=== PATIENT | male | born 1970 | race Caucasian/White ===

== ENCOUNTER 2020-06-12 12:35 | Outpatient (CLI) | payer MEDICARE, MEDICAID ==
[~2020-06-12 12:35] MED LIST: ALBU8.5H4 INH; BENZ1TAB7 PO; BRIM5DRO RIGHTEYE; HYDR-3686 PO; HYDR-4383 PO; LORA10TA7 PO; LORA1TAB PO; OMEP20TA5 PO; QUET-1 PO; TADA5TAB2 PO; TRAZ150T78 PO
== END 2020-06-12 23:59 | disposition home or self-care (01) ==
LOC: RT 12:35
PROVIDERS: ATTEND Physician Assistant
DX: J45.998 Other asthma (principal)
CPT/HCPCS: 94010

== ENCOUNTER 2022-07-17 08:54 | Inpatient (IN) | payer MEDICARE, MEDICAID ==
[~2022-07-17] VITALS: Ht 172.7 cm; Wt 70.0 kg
[~2022-07-17 08:54] MED LIST changes: +OMEP20TA43 PO; -OMEP20TA5 PO
[2022-07-17] MEDS ORDERED: LORazepam 2 mg/ml vial IM ONE (10:15)
[2022-07-17] MEDS ORDERED: haloperidol lactate 5mg/ml inj IM ONE (10:15)
[2022-07-17] MEDS ORDERED: diphenhydrAMINE 50 mg/ml inj IM ONE (10:15)
[2022-07-17] MEDS ORDERED: PALI234D IM ×2 (10:22)
[2022-07-17] MEDS ORDERED: QUET-1 PO (10:22)
[2022-07-17] MEDS ORDERED: DIPH-1055 PO (10:22)
[2022-07-17] MEDS ORDERED: FLUT12AE4 IH (10:39)
--- NOTE | 2022-07-17 12:06 | NUR ---
tech inventoried pt belongings and placed them into locker 24, pt phone being taken home by daughter. no valuables plced in ER registration safe.
--- NOTE | 2022-07-17 12:17 | NUR ---
SITTING UP IN BED EATING LUNCH, PT REPORTS "FEELING BETTER" AFTER MEDICATION.
[2022-07-17 12:25] LABS: BASOPHILS # (AUTO) 0.1 X10'3 (0-0.2); BASOPHILS % (AUTO) 0.5 % (0-1); EOSINOPHILS # (AUTO) 0.1 X10'3 (0-0.9); EOSINOPHILS % (AUTO) 1.2 % (0-6); HEMATOCRIT 44.3 % (42.0-52.0); HEMOGLOBIN 15.2 g/dl (14.0-17.9); LYMPHOCYTES # (AUTO) 2.4 X10'3 (1.1-4.8); LYMPHOCYTES % (AUTO) 22.9 % (21-51); MEAN CORPUSCULAR HEMOGLOBIN 29.5 PG (27.0-31.0); MEAN CORPUSCULAR HGB CONC 34.3 g/dL (33.0-36.5); MEAN CORPUSCULAR VOLUME 86.1 FL (78-98); MEAN PLATELET VOLUME 8.5 FL (7.4-10.4); MONOCYTES % (AUTO) 9.5 % (2-12); NEUTROPHILS % (AUTO) 65.9 % (42-75); PLATELET COUNT 235 X10'3 (140-440); RED BLOOD COUNT 5.15 X10'6 (4.70-6.10); RED CELL DISTRIBUTION WIDTH 13.3 % (11.5-14.5); WHITE BLOOD COUNT 10.6 X10'3 (4.5-11.0)
[2022-07-17 12:54] LABS: ALANINE AMINOTRANSFERASE 27 U/L (12-78); ALBUMIN 4.2 G/DL (3.4-5.0); ALBUMIN/GLOBULIN RATIO 1.4 (1.1-1.5); ALKALINE PHOSPHATASE 74 IU/L (46-116); ANION GAP 6 (8-16); ASPARTATE AMINO TRANSFERASE 23 U/L (10-37); BILIRUBIN,TOTAL 0.6 MG/DL (0.1-1.0); BLOOD UREA NITROGEN 8 MG/DL (7-18); BUN/CREATININE RATIO 6.7 (5.4-32.0); CALCIUM 9.5 MG/DL (8.5-10.1); CHLORIDE 100 MMOL/L (99-107); CREATININE 1.19 MG/DL (0.60-1.10); GLUCOSE 77 MG/DL (70-104); SODIUM 137 MMOL/L (135-145); TOTAL CARBON DIOXIDE 30.9 MMOL/L (24-32); TOTAL PROTEIN 7.1 G/DL (6.4-8.2); eGFR 64 ML/MIN
[2022-07-17 12:56] LABS: POTASSIUM 3.8 MMOL/L (3.5-5.1)
[2022-07-17 12:58] LABS: ETHANOL < 0.010 GM/DL (0.0-0.010)
[2022-07-17 13:43] LABS: CLARITY,URINE CLEAR (Clear); COLOR,URINE YELLOW (Yellow); GLUCOSE, URINE NEGATIVE (Neg); KETONES,URINE NEGATIVE (Neg); LEUKOCYTE ESTERASE ,URINE NEGATIVE (Neg); NITRITES, URINE NEGATIVE (Neg); OCCULT BLOOD,URINE NEGATIVE (Neg); PH,URINE 6.5 (4.8-8.0); PROTEIN,URINE NEGATIVE (Neg); UA COLLECTION TYPE NON-SPECIFIED; UROBILINOGEN,URINE 0.2 E.U/dL (0.2-1.0)
[2022-07-17] MEDS: QUEtiapine 25mg tablet PO SCH (13:57)
[2022-07-17 14:00] LABS: URINE AMPHETAMINE SCREEN POSITIVE (Neg); URINE BARBITUATE SCREEN NEGATIVE (Neg); URINE BENZODIAZEPINES SCREEN NEGATIVE (Neg); URINE CANNABINOID SCREEN NEGATIVE (Neg); URINE COCAINE SCREEN NEGATIVE (Neg); URINE METHADONE SCREEN NEGATIVE (Neg); URINE OPIATE SCREEN NEGATIVE (Neg); URINE PHENCYCLIDINE SCREEN NEGATIVE (Neg)
--- NOTE | 2022-07-17 14:04 | NUR ---
barbara sent pt packet to [facility]
[2022-07-17] MEDS ORDERED: LORazepam 1 MG tablet PO ONE (15:10)
--- NOTE | 2022-07-17 16:11 | NUR ---
PATIENT SLEEPING. NO CHANGE IN CONDITION
[2022-07-17] MEDS ORDERED: OMEP20TA23 PO (17:51)
[2022-07-17] MEDS: calcium carbonate 500mg chew tablet PO SCH (22:31)
[2022-07-17] MEDS ORDERED: QUET25TA36 PO (22:45)
--- NOTE | 2022-07-18 00:24 | NUR ---
PT. AWAKE WANTING TO MAKE A PHONE CALL TO HIS FAMILY, STATES HE IS "FREAKING OUT", SEEING SPIRITS HE POINTS OUT AND SAYS THERE IS ONE NOW. ALSO WHEN HE WENT TO THE BATHROOM THAT HIS "SPIRIT IS GOINT DOWN THE PIPES WHEN HE FLUSHED THE TOILET". sPOKE WITH DR. CLEMENS, MEDS ORDERED.
[2022-07-18] MEDS: olanzapine 10mg tablet PO SCH (00:34)
--- NOTE | 2022-07-18 01:35 | NUR ---
PATIENT SLEEPING QUIETLY ON LEFT SIDE WITHOUT APPARENT DISTRESS. NO FURTHER C/O OF ANXIETY AFTER MEDS GIVEN ORDERED. WILL CONTINUE TO MONITOR
--- NOTE | 2022-07-18 02:46 | NUR ---
No change in pt. condition, sleeping quietly. Will continue to monitor.
--- NOTE | 2022-07-18 03:47 | NUR ---
Pt. woke up crying and tearful. When asked what is wrong, he is slow to respond and states he can't fix what is wrong. Continues to want to call his family. Requested juice, given and continues to cry.
--- NOTE | 2022-07-18 04:41 | NUR ---
Pt. back to sleep without distress. Will continue to monitor.
--- NOTE | 2022-07-18 05:49 | NUR ---
Continues to sleep without distress. Will continue to monitor.
[2022-07-18] MEDS ORDERED: LORazepam 1 MG tablet PO ONE ×2 (06:40→12:20)
[2022-07-18] MEDS: QUEtiapine 25mg tablet PO SCH (07:02)
--- NOTE | 2022-07-18 07:04 | NUR ---
Patient is sitting quietly on his bed.
[2022-07-18] MEDS ORDERED: nicotine 21mg patch - 24 hr TD ONE (08:00)
--- NOTE | 2022-07-18 08:04 | NUR ---
Patient is sleeping on the left side. Will continue to monitor.
[2022-07-18] MEDS: calcium carbonate 500mg chew tablet PO SCH ×3 (08:06→20:13)
--- NOTE | 2022-07-18 09:03 | NUR ---
Patient is setting at bedside eating breakfast.
--- NOTE | 2022-07-18 10:06 | NUR ---
Patient is sitting quietly in bed.
[2022-07-18] MEDS ORDERED: OLANZapine 2.5MG tablet PO ONE (10:35)
--- NOTE | 2022-07-18 11:02 | NUR ---
Patient interacting with staff appropriately in room
--- NOTE | 2022-07-18 11:25 | NUR ---
CIPRIANO Lucio from [facility] at bedside. PT to be transported to the floor
[2022-07-18 11:51] VITALS: BP 120/83
[2022-07-18] MEDS ORDERED: magnesium hydroxide 30ml (MOM) UD suspension PO PRN (11:55)
[2022-07-18] MEDS ORDERED: mag hydrox/Alum hydrox/simeth 30ml oral suspension PO PRN (11:55)
[2022-07-18] MEDS ORDERED: loperamide 2mg capsule PO PRN (11:55)
[2022-07-18] MEDS ORDERED: acetaminophen 325mg tablet PO PRN (11:55)
--- NOTE | 2022-07-18 12:37 | NUR ---
Admit note: [facility] on a 5150 for gravely disabled. Pt has decompensated experiencing command auditory hallucinations, paranoia, wandering. He is unable to develop viable plan to meet his basic needs. Pt has history of schizophrenia, bipolar, pancreatitis.
[2022-07-18] MEDS ORDERED: pantoprazole 40mg Tablet.DR PO ONE (13:15)
[2022-07-18] MEDS ORDERED: paliperidone palmitate inj 234 MG/1.5 ML SYRINGE IM PRN (13:20)
[2022-07-18] MEDS ORDERED: diphenhydrAMINE 25mg capsule PO PRN (13:20)
[2022-07-18] MEDS ORDERED: paliperidone palmitate inj 234 MG/1.5 ML SYRINGE IM SCH (13:20)
[2022-07-18] MEDS ORDERED: LORazepam 1 MG tablet PO PRN ×2 (13:20→13:25)
[2022-07-18] MEDS ORDERED: albuterol 2.5 MG/3 ML nebule NEB PRN (13:40)
[2022-07-18] MEDS: loratadine 10mg tablet PO SCH (14:46)
[2022-07-18] MEDS: albuterol 2.5 MG/3 ML nebule NEB SCH ×2 (15:00→19:53)
[2022-07-18] MEDS ORDERED: cloNIDine 0.1 mg tablet PO ONE (15:40)
[2022-07-18 19:00] VITALS: BP 140/86
[2022-07-18] MEDS: budesonide 0.5mg/2ml UD nebule IH SCH (19:53)
[2022-07-18] MEDS: traZODone 50mg tablet PO SCH (20:13)
[2022-07-18] MEDS: benztropine 1mg tablet PO SCH (20:13)
[2022-07-18] MEDS: LORazepam 1 MG tablet PO SCH (20:13)
[2022-07-18] MEDS ORDERED: CLOZAPINE 25 MG oral disintegrating tablet PO ONE (20:40)
--- NOTE | 2022-07-18 20:50 | NUR ---
CLOZAPINE REMS ID: Client was registered at [email or web address] on 07/18/22. ID#: [id number] Provider: Myron Ramirez MD
[2022-07-18] MEDS ORDERED: quetiapine 100mg tablet PO SCH (21:00)
[2022-07-19] MEDS: olanzapine 10mg tablet PO SCH (00:17)
[2022-07-19] MEDS: albuterol 2.5 MG/3 ML nebule NEB SCH ×4 (03:00→20:48)
--- NOTE | 2022-07-19 04:09 | NUR ---
Nursing Progress Note: Problem: Pt admitted to [facility] on a 5150 for gravely disabled. Pt has decompensated experiencing command auditory hallucinations, paranoia, wandering. He is unable to develop viable plan to meet his basic needs. Pt has history of schizophrenia, bipolar, pancreatitis. Interventions: Maintained a safe and supportive environment, ensured contract for safety, provided clear and simple instructions, attempted to orient to reality, monitored behavior and provided intervention as needed, provided active listening and positive encouragement, encouraged independent performance of ADLs, and maintained Q 15min safety checks. Response: Pt pacing on the halls at start of shift. 1:1 assessment at bedside. Pt denies SI, pt states he is having AH/VH. When asked of the content pt states I see my soul in the toilet and going down the pipes. I hear people scream getting rapped. When asked how he is doing pt states I cant slow down, my mind keeps going thats why I pace back and forth. Pt is confused and disorganized. Pt seen sticking his head in cohorts room and staring at them. HS meds administered. Pt had a snack and went to bed. Pt slept through the night. Plan: Pt requires stabilization with medication adjustment, management and monitoring in a safe and therapeutic environment until stable.
[2022-07-19 08:00] VITALS: BP 131/71
[2022-07-19] MEDS: nicotine 21mg patch - 24 hr TD SCH ×2 (08:00→10:41)
[2022-07-19] MEDS: LORazepam 1 MG tablet PO SCH ×3 (08:06→20:05)
[2022-07-19] MEDS: QUEtiapine 25mg tablet PO SCH ×2 (08:06→12:19)
[2022-07-19] MEDS: pantoprazole 40mg Tablet.DR PO SCH (08:06)
[2022-07-19] MEDS: calcium carbonate 500mg chew tablet PO SCH ×3 (08:07→20:06)
[2022-07-19] MEDS: CLOZAPINE 25 MG oral disintegrating tablet PO PRN ×3 (08:07→18:52)
[2022-07-19] MEDS: acetaminophen 325mg tablet PO PRN ×2 (08:07→12:20)
[2022-07-19] MEDS: benztropine 1mg tablet PO SCH ×2 (08:07→20:05)
[2022-07-19] MEDS: loratadine 10mg tablet PO SCH (08:07)
[2022-07-19] MEDS: budesonide 0.5mg/2ml UD nebule IH SCH ×2 (08:45→20:48)
--- NOTE | 2022-07-19 09:04 | NUR ---
Pt. sleeping soundly at this time without SOB.. CHIP held
[2022-07-19] MEDS: NICOTINE POLACRILEX 2 MG LOZENGE BC PRN (10:41)
[2022-07-19 10:53] LABS: CHOL/HDL RATIO 2.9 (0.00-4.99); CHOLESTEROL 136 MG/DL (0-200); HDL CHOLESTEROL 47 MG/DL (35-60); LDL CHOLESTEROL 70 MG/DL (50-100); TRIGLYCERIDES 103 MG/DL (20-135)
--- NOTE | 2022-07-19 14:11 | NUR ---
Pt. again sleeping soundly, CHIP maynard
--- NOTE | 2022-07-19 16:25 | NUR ---
Nursing Progress Note: Problem: Pt admitted to [facility] on a 5150 for gravely disabled. Pt has decompensated experiencing command auditory hallucinations, paranoia, wandering. He is unable to develop viable plan to meet his basic needs. Pt has history of schizophrenia, bipolar, pancreatitis. Interventions: Maintained a safe and supportive environment, ensured contract for safety, provided clear and simple instructions, attempted to orient to reality, monitored behavior and provided intervention as needed, provided active listening and positive encouragement, encouraged independent performance of ADLs, and maintained Q 15min safety checks. Response: Patient was asleep at change of shift and up before breakfast. Patient c/o DUMONT and anxiety. RN gave patient Tylenol and 25 mg Clozaril with morning meds (which includes 1 mg of Ativan, scheduled). An hour later patient was asking for med for anxiety. No more meds to give but within 20 minutes patient was asleep in his bed. Patient was given Tylenol a second time during the day for a DUMONT. Patient reports audio/visual hallucination and spoke about seeing blue balls bouncing behind RN. Patient seen pacing. RN was advised in the late afternoon that patient needed anti-anxiety medication. Once RN finished her task and went to check on patient, patient was sound asleep. Per Dr. Ramirez, he is in the midst of adjusting patient's medications. Plan: Pt requires stabilization with medication adjustment, management and monitoring in a safe and therapeutic environment until stable.
[2022-07-19 20:03] VITALS: BP 139/69
[2022-07-19] MEDS: CLOZAPINE 25 MG oral disintegrating tablet PO SCH (20:05)
[2022-07-19] MEDS: quetiapine 100mg tablet PO SCH (20:06)
[2022-07-19] MEDS: traZODone 50mg tablet PO SCH (20:06)
[2022-07-19] MEDS ORDERED: CLOZAPINE 25 MG oral disintegrating tablet PO SCH (21:00)
[2022-07-20] MEDS: olanzapine 10mg tablet PO SCH (00:25)
--- NOTE | 2022-07-20 01:37 | NUR ---
Nursing Progress Note: Problem: Pt admitted to [facility] on a 5150 for gravely disabled. Pt has decompensated experiencing command auditory hallucinations, paranoia, wandering. He is unable to develop viable plan to meet his basic needs. Pt has history of schizophrenia, bipolar, pancreatitis. Interventions: Maintained a safe and supportive environment, ensured contract for safety, provided clear and simple instructions, attempted to orient to reality, monitored behavior and provided intervention as needed, provided active listening and positive encouragement, encouraged independent performance of ADLs, and maintained Q 15min safety checks. Response: Pt up in [place] at start of shift pacing c/o anxiety and flashbacks. Pt given PRN Clozapine only after about 5 minutes pt returned anxious That it did not work. Wanted MD called to get something stronger. Encouraged pt to wait for 30 minutes to see if it would work. He agreed and it was effective. After one brief period of yelling out he was able to lay quietly in bed till snack and his HS meds due. Pt Denied SI has some delusional thinking related to electronic surveillance and people spying on him. He did make a female pt uncomfortable by staring at her through her open door of her room. Pt took all meds and was able to go to sleep. Plan: Pt requires stabilization with medication adjustment, management and monitoring in a safe and therapeutic environment until stable.
[2022-07-20] MEDS: albuterol 2.5 MG/3 ML nebule NEB SCH ×4 (03:00→20:27)
[2022-07-20] MEDS: budesonide 0.5mg/2ml UD nebule IH SCH ×2 (07:44→20:27)
--- NOTE | 2022-07-20 07:45 | NUR ---
pt. refused morning SVN. o resp distress observed. Pt. remains on room air
[2022-07-20 08:00] VITALS: BP 126/67
[2022-07-20] MEDS: calcium carbonate 500mg chew tablet PO SCH (08:00)
[2022-07-20] MEDS: pantoprazole 40mg Tablet.DR PO SCH (08:17)
[2022-07-20] MEDS: benztropine 1mg tablet PO SCH ×2 (08:17→20:37)
[2022-07-20] MEDS: QUEtiapine 25mg tablet PO SCH ×2 (08:17→12:45)
[2022-07-20] MEDS: loratadine 10mg tablet PO SCH (08:18)
[2022-07-20] MEDS: LORazepam 1 MG tablet PO SCH ×3 (08:18→20:37)
[2022-07-20] MEDS: CLOZAPINE 25 MG oral disintegrating tablet PO SCH ×3 (08:18→20:36)
[2022-07-20] MEDS: nicotine 21mg patch - 24 hr TD SCH (08:18)
[2022-07-20] MEDS: CLOZAPINE 25 MG oral disintegrating tablet PO PRN ×2 (11:30→17:45)
[2022-07-20] MEDS ORDERED: calcium carbonate 500mg chew tablet PO PRN (13:00)
--- NOTE | 2022-07-20 17:15 | NUR ---
Nursing Progress Note: Problem: Pt admitted to [facility] on a 5150 for gravely disabled. Pt has decompensated experiencing command auditory hallucinations, paranoia, wandering. He is unable to develop viable plan to meet his basic needs. Pt has history of schizophrenia, bipolar, pancreatitis. Interventions: Maintained a safe and supportive environment, ensured contract for safety, provided clear and simple instructions, attempted to orient to reality, monitored behavior and provided intervention as needed, provided active listening and positive encouragement, encouraged independent performance of ADLs, and maintained Q 15min safety checks. Response: Patient was asleep at change of shift and up before breakfast. Patient complaining of anxiety off and on all day long. Three times throughout the day patient asked for medication. When RN went to patient's room. Patient was already sleeping. Patient also asking for anxiety hours before med is due. Patient needs coping skills. Patient did take several naps during the day. Patient's medication is in the process of being adjusted. So far Clozaril has been the best to decrease patient's anxiety. Plan: Pt requires stabilization with medication adjustment, management and monitoring in a safe and therapeutic environment until stable.
[2022-07-20] MEDS: quetiapine 100mg tablet PO SCH (20:37)
[2022-07-20] MEDS: traZODone 50mg tablet PO SCH (20:37)
[2022-07-20 20:54] VITALS: BP 132/87
[2022-07-20] MEDS ORDERED: CLOZAPINE 25 MG oral disintegrating tablet PO ONE ×2 (21:55→22:00)
--- NOTE | 2022-07-20 23:08 | NUR ---
Nursing Progress Note: Problem: Pt admitted to [facility] on a 5150 for gravely disabled. Pt has decompensated experiencing command auditory hallucinations, paranoia, wandering. He is unable to develop viable plan to meet his basic needs. Pt has history of schizophrenia, bipolar, pancreatitis. Interventions: One to one with the patient to assess severity of psychotic symptoms, self harm risk and the severity of depressive symptoms. scallop raker , Dr. Tomas was made aware that the patient was reporting that he was not able to sleep and orders received. Response: During the initial nursing assessment after change of shift the patient stated that he had no anxiety "right now it's completely normal but that can change in 3 minutes" He denies that is having suicidal thoughts. He reports decreased concentration and focus then added, "I keep having flash backs" but he declined to elaborate. He reported AH "all the time" He also reported VH in his peripheral vision. He became quite tearful and upset just prior to getting his evening medications. He was calmer after his HS medications but then came up to the nursing station and reported difficulty sleeping. Plan: Continue q 15 minute safety checks. Assess for severity of anxiety, depressive symptoms and self harm risk at least q shift and prn. Assess for medication side effects.
[2022-07-21] MEDS: albuterol 2.5 MG/3 ML nebule NEB SCH ×4 (03:00→20:41)
[2022-07-21 08:00] VITALS: BP 119/74
[2022-07-21] MEDS: pantoprazole 40mg Tablet.DR PO SCH (08:11)
[2022-07-21] MEDS: LORazepam 1 MG tablet PO SCH ×3 (08:11→19:54)
[2022-07-21] MEDS: loratadine 10mg tablet PO SCH (08:11)
[2022-07-21] MEDS: CLOZAPINE 25 MG oral disintegrating tablet PO SCH ×2 (08:12→12:44)
[2022-07-21] MEDS: benztropine 1mg tablet PO SCH ×2 (08:12→19:54)
[2022-07-21] MEDS: acetaminophen 325mg tablet PO PRN (08:12)
[2022-07-21] MEDS: nicotine 21mg patch - 24 hr TD SCH (08:15)
[2022-07-21] MEDS: budesonide 0.5mg/2ml UD nebule IH SCH ×2 (09:38→20:00)
--- NOTE | 2022-07-21 09:45 | NUR ---
Pt tolerated 2 minutes of neb tx states he doesnt need it denies sob. up walking around. Addendum: 07/21/22 at 945 by Adrianne Gaston RT Amended: Links added. Addendum: 07/21/22 at 945 by Adrianne Gaston RT Amended: Links added.
[2022-07-21] MEDS: NICOTINE POLACRILEX 2 MG LOZENGE BC PRN (14:36)
--- NOTE | 2022-07-21 14:40 | NUR ---
Nursing Progress Note: Problem: [facility]150 for gravely disabled. Pt has decompensated experiencing command auditory hallucinations, paranoia, wandering. He is unable to develop viable plan to meet his basic needs. Pt has history of schizophrenia, bipolar, pancreatitis. Interventions: 1:1 assessment, establishment of rapport, therapeutic conversation, active listening, medication administration/education/monitoring, ensured contract for safety, provided simple instructions, behavior monitoring and intervention as needed, provided distraction, redirection, positive reinforcement, and Q15 minute safety checks. Response: Pt was up for breakfast and cooperative with medications. When asked about AH, pt replied, "all the time." Pt describes the voices as quick one word or short sentence expletives. Pt denied any CAH today. Pt denied SI/HI. Pt denied any VH this morning though states that he does see things sometimes. Pt described incidents of AH/VH in the community. Pt stated that he was at home looking at a darius jones and he heard, "Kill 'em, they're !" He also spoke of walking out of a grocery store with a bag full of meat, seeing a dog. Pt stated that the dog looked up at the bag and said, "yum." Pt was pleasant and talkative. Pt takes short naps throughout the day. Pt makes phone calls. Pt c/o 7/10 back pain and was given PRN Tylenol 650 mg at 0812 with good effect. Pt requested a nicotine lozenge at 1436. Pt has a CBC/diff ordered for 07/31/22. Plan: Pt requires stabilization with medication adjustment, management and monitoring in a safe and therapeutic environment until stable.
[2022-07-21] MEDS: CLOZAPINE 25 MG oral disintegrating tablet PO PRN (17:09)
[2022-07-21] MEDS: traZODone 50mg tablet PO SCH (19:55)
[2022-07-21 20:07] VITALS: BP 138/95
[2022-07-21] MEDS ORDERED: quetiapine 100mg tablet PO SCH (21:00)
[2022-07-21] MEDS ORDERED: CLOZAPINE 25 MG oral disintegrating tablet PO SCH (21:00)
[2022-07-21] MEDS ORDERED: CLOZAPINE 25 MG oral disintegrating tablet PO ONE ×2 (23:15→23:40)
--- NOTE | 2022-07-22 00:54 | NUR ---
Nursing Progress Note: ra Problem: Pt admitted to [facility] on a 5150 for gravely disabled. Pt has decompensated experiencing command auditory hallucinations, paranoia, wandering. He is unable to develop viable plan to meet his basic needs. Pt has history of schizophrenia, bipolar, pancreatitis. Interventions: 1:1 assessment, establishment of rapport, therapeutic conversation, active listening, medication administration/education/monitoring, ensured contract for safety, provided simple instructions, behavior monitoring and intervention as needed, provided distraction, redirection, positive reinforcement, and Q15 minute safety checks. Response: Pt resting in bed and was calm and cooperative with care. He voices depression and anxiety, denies SI/AH. Pt requested his medications to be on time tonight because when he gets really anxious I need my medications soon. Pt has flat affect, appears depressed. Pt took HS medications, however woke up complaining about difficulty sleeping. Provider notified 25MG clozapine given with good effect. Plan: Pt requires stabilization with medication adjustment, management and monitoring in a safe and therapeutic environment until stable.
[2022-07-22] MEDS: albuterol 2.5 MG/3 ML nebule NEB SCH ×4 (01:59→20:37)
--- NOTE | 2022-07-22 07:29 | NUR ---
Initial; Pt admitted w/ schizophrenia and SI per EMR. Currently on Regular diet w/ mostly 75-100% intake of meals meeting est needs at this time. LBM 07/21. No nutrition intervention implemented at this time, will continue to monitor. Recs: 1. Continue Regular diet as tolerated 2. Bowel care PRN 3. Weekly wts Addendum: 07/22/22 at [address] Amended: Links added.
[2022-07-22 07:48] VITALS: BP 133/73
[2022-07-22] MEDS: LORazepam 1 MG tablet PO SCH ×3 (08:15→19:43)
[2022-07-22] MEDS: loratadine 10mg tablet PO SCH (08:15)
[2022-07-22] MEDS: pantoprazole 40mg Tablet.DR PO SCH (08:15)
[2022-07-22] MEDS: CLOZAPINE 25 MG oral disintegrating tablet PO SCH ×2 (08:15→12:51)
[2022-07-22] MEDS: benztropine 1mg tablet PO SCH ×2 (08:15→19:42)
[2022-07-22] MEDS: nicotine 21mg patch - 24 hr TD SCH (09:04)
[2022-07-22] MEDS: budesonide 0.5mg/2ml UD nebule IH SCH ×2 (09:30→20:00)
--- NOTE | 2022-07-22 10:01 | NUR ---
Pt. refused morning SVN. No SOB with SpO2 97% on room air
[2022-07-22] MEDS: CLOZAPINE 25 MG oral disintegrating tablet PO PRN ×3 (11:14→21:16)
--- NOTE | 2022-07-22 17:09 | NUR ---
Nursing Progress Note: Problem: Pt admitted to [facility] on a 5150 for gravely disabled. Pt has decompensated experiencing command auditory hallucinations, paranoia, wandering. He is unable to develop viable plan to meet his basic needs. Pt has history of schizophrenia, bipolar, pancreatitis. Interventions: 1:1 assessment, establishment of rapport, therapeutic conversation, active listening, medication administration/education/monitoring, ensured contract for safety, provided simple instructions, behavior monitoring and intervention as needed, provided distraction, redirection, positive reinforcement, and Q15 minute safety checks. Response: Nurse received Pt in his room resting quietly on his back in bed. Pt attended breakfast and then 1:1 done at the bedside. Pt continues to voice concerns with his inability to sleep, stating, last night was the worst night in months. Nurse encouraged pt. to notify the psychiatrist and ensured him this nurse would speak with him as well. Pt continues to have bouts of anxiety and utilized his PRN clozapine 25mg at approx. 1125am, pt states it knocked me out but states it was effective at treating his anxiety. Pt endorses hallucinations stating they are not bad today but describes it feels like he is being stabbed repeatedly in his back. Denies SI/HI. Pt daughter Leticia visited this shift, appears they have a healthy relationship, Leticia stated she is his POA. Pt was polite and cooperative with this nurse. Clozapine 50mg PRN at 1528 for flashback causing him to freak out. PRNs effective. Per Dr. Chanel, the patient needs to be assessed for sleeping approx. one hour after receiving his night-time medications to ensure he is sleeping. Verbally ask how he is sleeping because he may appear to be asleep but is lying there with his eyes closed. Plan: Pt requires stabilization with medication adjustment, management and monitoring in a safe and therapeutic environment until stable.
[2022-07-22] MEDS: acetaminophen 325mg tablet PO PRN (17:54)
[2022-07-22] MEDS: quetiapine 100mg tablet PO SCH (19:42)
[2022-07-22] MEDS: CLOZAPINE 100 MG TAB.RAPDIS PO SCH (19:46)
[2022-07-22 20:00] VITALS: BP 130/78
[2022-07-22] MEDS ORDERED: CLOZAPINE 25 MG oral disintegrating tablet PO SCH (21:00)
[2022-07-22] MEDS ORDERED: traZODone 50mg tablet PO SCH (21:00)
[2022-07-22] MEDS ORDERED: QUEtiapine 25mg tablet PO SCH (21:00)
[2022-07-23] MEDS: albuterol 2.5 MG/3 ML nebule NEB SCH ×4 (02:10→21:00)
--- NOTE | 2022-07-23 05:05 | NUR ---
Nursing Progress Note: Problem: Pt admitted to [facility] on a 5150 for gravely disabled. Pt has decompensated experiencing command auditory hallucinations, paranoia, wandering. He is unable to develop viable plan to meet his basic needs. Pt has history of schizophrenia, bipolar, pancreatitis. Interventions: 1:1 assessment, establishment of rapport, therapeutic conversation, active listening, medication administration/education/monitoring, ensured contract for safety, provided simple instructions, behavior monitoring and intervention as needed, provided distraction, redirection, positive reinforcement, and Q15 minute safety checks. Response: Pt walking the halls at start of shift and back to room. Pt asked RN if he can have his HS meds early tonight. 1:1 assessment at bedside. Pt denies wanting to hurt himself and others. Pt states that he is having AH/VH but not all the time. When asked of the content pt states I hear people screaming sounds like they are hurting themselves. I see thing coming out of the chair and out of the side of the building. When asked how he is doing pt states not too bad. Two hours after HS meds administered, pt came to this RN and states hes tossing and turning trying to go to sleep. PRN clozapine 50mg given with effectiveness. Pt refused breathing treatment to night, pt states that he does not want to be woken up because he does not need it. Plan: Pt requires stabilization with medication adjustment, management and monitoring in a safe and therapeutic environment until stable.
[2022-07-23 08:00] VITALS: BP 114/75
[2022-07-23] MEDS: pantoprazole 40mg Tablet.DR PO SCH (08:37)
[2022-07-23] MEDS: benztropine 1mg tablet PO SCH ×2 (08:37→20:17)
[2022-07-23] MEDS: LORazepam 1 MG tablet PO SCH ×3 (08:37→20:17)
[2022-07-23] MEDS: loratadine 10mg tablet PO SCH (08:37)
[2022-07-23] MEDS: CLOZAPINE 25 MG oral disintegrating tablet PO SCH ×2 (08:38→12:00)
[2022-07-23] MEDS: nicotine 21mg patch - 24 hr TD SCH (08:39)
[2022-07-23] MEDS: budesonide 0.5mg/2ml UD nebule IH SCH ×2 (09:11→20:00)
[2022-07-23] MEDS: CLOZAPINE 25 MG oral disintegrating tablet PO PRN ×2 (10:03→16:42)
--- NOTE | 2022-07-23 13:19 | NUR ---
[address]
[2022-07-23] MEDS ORDERED: sennosides 8.6mg tablet PO ONE (15:10)
--- NOTE | 2022-07-23 16:47 | NUR ---
Nursing Progress Note: Problem: Pt admitted to [facility] on a 5150 for gravely disabled. Pt has decompensated experiencing command auditory hallucinations, paranoia, wandering. He is unable to develop viable plan to meet his basic needs. Pt has history of schizophrenia, bipolar, pancreatitis. Interventions: 1:1 assessment, establishment of rapport, therapeutic conversation, active listening, medication administration/education/monitoring, ensured contract for safety, provided simple instructions, behavior monitoring and intervention as needed, provided distraction, redirection, positive reinforcement, and Q15 minute safety checks. Response: Patient received resting quietly in bed. Cooperative with assessment and medications. Eats meals in the community room and interacts appropriately with staff and peers. Endorses auditory and visual hallucinations. When asked about them the patient states, Thats the thing I was going to see if I could get a tablet and someone could write down all the things. Patient appears internally occupied. Becomes disorganized at times especially when asked questions. Complains of constipation and requests a fiber pill. Provider is notified and new order for Senna is given. Plan: Pt requires stabilization with medication adjustment, management and monitoring in a safe and therapeutic environment until stable.
[2022-07-23 20:00] VITALS: BP 142/82
[2022-07-23] MEDS: quetiapine 100mg tablet PO SCH (20:17)
[2022-07-23] MEDS: sennosides 8.6mg tablet PO SCH (20:17)
[2022-07-23] MEDS: CLOZAPINE 100 MG TAB.RAPDIS PO SCH (20:18)
[2022-07-23] MEDS ORDERED: traZODone 50mg tablet PO SCH (21:00)
[2022-07-23] MEDS ORDERED: CLOZAPINE 25 MG oral disintegrating tablet PO SCH (21:00)
[2022-07-24] MEDS: albuterol 2.5 MG/3 ML nebule NEB SCH (03:00)
--- NOTE | 2022-07-24 04:13 | NUR ---
Nursing Progress Note: Problem: Pt admitted to [facility] on a 5150 for gravely disabled. Pt has decompensated experiencing command auditory hallucinations, paranoia, wandering. He is unable to develop viable plan to meet his basic needs. Pt has history of schizophrenia, bipolar, pancreatitis. Interventions: 1:1 assessment, establishment of rapport, therapeutic conversation, active listening, medication administration/education/monitoring, ensured contract for safety, provided simple instructions, behavior monitoring and intervention as needed, provided distraction, redirection, positive reinforcement, and Q15 minute safety checks. Response: Pt walking the halls at start of shift and back to room. 1:1 assessment at bedside. Pt denies wanting to hurt himself and others. Pt states that he is having AH but no VH at this time. When asked how he is doing pt states he is feeling worse today. Pt held hands out in front of him and said see how shaky my hands are? Pt came to this RN and said I just heard the voice and it said wheres your ride. Pt refused breathing treatment to night. HS meds administered and pt slept through the night. No PRNs given this shift. Plan: Pt requires stabilization with medication adjustment, management and monitoring in a safe and therapeutic environment until stable.
[2022-07-24 08:00] VITALS: BP 134/78
[2022-07-24] MEDS ORDERED: albuterol 2.5 MG/3 ML nebule NEB PRN (08:05)
[2022-07-24] MEDS: sennosides 8.6mg tablet PO SCH ×2 (08:08→20:14)
[2022-07-24] MEDS: loratadine 10mg tablet PO SCH (08:08)
[2022-07-24] MEDS: nicotine 21mg patch - 24 hr TD SCH (08:08)
[2022-07-24] MEDS: CLOZAPINE 25 MG oral disintegrating tablet PO SCH ×2 (08:08→11:38)
[2022-07-24] MEDS: LORazepam 1 MG tablet PO SCH ×3 (08:08→20:13)
[2022-07-24] MEDS: pantoprazole 40mg Tablet.DR PO SCH (08:08)
[2022-07-24] MEDS: benztropine 1mg tablet PO SCH ×2 (08:08→20:13)
[2022-07-24 09:26] LABS: BASOPHILS # (AUTO) 0.1 X10'3 (0-0.2); BASOPHILS % (AUTO) 0.9 % (0-1); EOSINOPHILS # (AUTO) 0.2 X10'3 (0-0.9); HEMATOCRIT 45.3 % (42.0-52.0); HEMOGLOBIN 15.3 g/dl (14.0-17.9); LYMPHOCYTES # (AUTO) 2.4 X10'3 (1.1-4.8); LYMPHOCYTES % (AUTO) 30.2 % (21-51); MEAN CORPUSCULAR HEMOGLOBIN 29.2 PG (27.0-31.0); MEAN CORPUSCULAR HGB CONC 33.8 g/dL (33.0-36.5); MEAN CORPUSCULAR VOLUME 86.5 FL (78-98); MEAN PLATELET VOLUME 9.2 FL (7.4-10.4); MONOCYTES # (AUTO) 0.6 X10'3 (0-0.9); MONOCYTES % (AUTO) 7.3 % (2-12); NEUTROPHILS # (AUTO) 4.7 X10'3 (1.8-7.7); NEUTROPHILS % (AUTO) 58.6 % (42-75); PLATELET COUNT 219 X10'3 (140-440); RED BLOOD COUNT 5.24 X10'6 (4.70-6.10); RED CELL DISTRIBUTION WIDTH 13.5 % (11.5-14.5)
[2022-07-24] MEDS: CLOZAPINE 25 MG oral disintegrating tablet PO PRN ×3 (15:58→21:13)
--- NOTE | 2022-07-24 17:37 | NUR ---
Nursing Progress Note: Problem: Pt admitted to [facility] on a 5150 for gravely disabled. Pt has decompensated experiencing command auditory hallucinations, paranoia, wandering. He is unable to develop viable plan to meet his basic needs. Pt has history of schizophrenia, bipolar, pancreatitis. Interventions: 1:1 assessment, establishment of rapport, therapeutic conversation, active listening, medication administration/education/monitoring, ensured contract for safety, provided simple instructions, behavior monitoring and intervention as needed, provided distraction, redirection, positive reinforcement, and Q15 minute safety checks. Response: Patient received resting quietly in bed. Cooperative with assessment and medications. Denies any SI/ HI. Continues to endorse AH but does not elaborate on what he hears. In the afternoon he complains of increased anxiety. PRN Clozaril is given and appears helpful. Patient takes a short nap in the afternoon and is noted spending time in common areas and interacting appropriately. Plan: Pt requires stabilization with medication adjustment, management and monitoring in a safe and therapeutic environment until stable.
[2022-07-24 20:00] VITALS: BP 137/89
[2022-07-24] MEDS: traZODone 50mg tablet PO SCH (20:13)
[2022-07-24] MEDS ORDERED: QUEtiapine 25mg tablet PO SCH (21:00)
[2022-07-24] MEDS ORDERED: CLOZAPINE 25 MG oral disintegrating tablet PO SCH (21:00)
[2022-07-24] MEDS: CLOZAPINE 100 MG TAB.RAPDIS PO SCH (21:22)
[2022-07-24] MEDS ORDERED: traZODone 50mg tablet PO ONE (22:20)
[2022-07-24] MEDS ORDERED: LORazepam 1 MG tablet PO ONE (22:20)
[2022-07-24] MEDS ORDERED: quetiapine 100mg tablet PO ONE (22:20)
--- NOTE | 2022-07-25 02:49 | NUR ---
Nursing Progress Note: Problem: Pt admitted to [facility] on a 5150 for gravely disabled. Pt has decompensated experiencing command auditory hallucinations, paranoia, wandering. He is unable to develop viable plan to meet his basic needs. Pt has history of schizophrenia, bipolar, pancreatitis. Interventions: 1:1 assessment, establishment of rapport, therapeutic conversation, active listening, medication administration/education/monitoring, ensured contract for safety, provided simple instructions, behavior monitoring and intervention as needed, provided distraction, redirection, positive reinforcement, and Q15 minute safety checks. Response: Patient in community room watching movies with cohorts at shift change. Patient was seen laughing and socializing. Patient reports hearing voices and seeing people in his room. Patient claims that it's due to traumatic events that took place in his life and that it gives him reoccurring flashbacks. Patient took evening meds w/o complications. Patient later seen pacing in the hallway. Provider ordered Seroquel 100mg, Ativan 1mg, Trazodone 100mg. Patient checked on frequently due respiratory depression. Patient able to fall asleep an hour after med administration. Plan: Pt requires stabilization with medication adjustment, management and monitoring in a safe and therapeutic environment until stable.
[2022-07-25 07:15] VITALS: BP 127/72
[2022-07-25] MEDS: pantoprazole 40mg Tablet.DR PO SCH (07:54)
[2022-07-25] MEDS: LORazepam 1 MG tablet PO SCH ×3 (07:54→20:32)
[2022-07-25] MEDS: sennosides 8.6mg tablet PO SCH ×2 (07:54→20:31)
[2022-07-25] MEDS: loratadine 10mg tablet PO SCH (07:54)
[2022-07-25] MEDS: nicotine 21mg patch - 24 hr TD SCH (07:54)
[2022-07-25] MEDS: benztropine 1mg tablet PO SCH ×2 (07:55→20:31)
[2022-07-25] MEDS: CLOZAPINE 25 MG oral disintegrating tablet PO SCH ×2 (07:55→12:00)
[2022-07-25] MEDS: CLOZAPINE 25 MG oral disintegrating tablet PO PRN ×2 (10:23→21:49)
[2022-07-25] MEDS ORDERED: LORazepam 1 MG tablet PO ONE (12:15)
[2022-07-25] MEDS ORDERED: cloNIDine 0.1 mg tablet PO ONE (13:25)
--- NOTE | 2022-07-25 17:12 | NUR ---
Nursing Progress Note: Problem: Pt admitted to [facility] on a 5150 for gravely disabled. Pt has decompensated experiencing command auditory hallucinations, paranoia, wandering. He is unable to develop viable plan to meet his basic needs. Pt has history of schizophrenia, bipolar, pancreatitis. Interventions: 1:1 assessment, establishment of rapport, therapeutic conversation, active listening, medication administration/education/monitoring, ensured contract for safety, provided simple instructions, behavior monitoring and intervention as needed, provided distraction, redirection, positive reinforcement, and Q15 minute safety checks. Response: Patient received resting quietly in bed. Cooperative with assessment and medications. Patient endorse hallucinations stating, There were demons all over me last night. I could feel them touching my back. PRN Clozaril is given for anxiety which appears effective. Takes a short nap in the early afternoon. Generally isolates to his room but eat meals in the community room and is noted walking the halls at times. Plan: Pt requires stabilization with medication adjustment, management and monitoring in a safe and therapeutic environment until stable.
[2022-07-25 19:00] VITALS: BP 138/82
[2022-07-25] MEDS: traZODone 50mg tablet PO SCH (20:32)
[2022-07-25] MEDS: CLOZAPINE 100 MG TAB.RAPDIS PO SCH (20:33)
[2022-07-25] MEDS ORDERED: CLOZAPINE 25 MG oral disintegrating tablet PO SCH (21:00)
[2022-07-25] MEDS ORDERED: QUEtiapine 25mg tablet PO SCH (21:00)
--- NOTE | 2022-07-26 03:47 | NUR ---
Nursing Progress Note: Problem: Pt admitted to [facility] on a 5150 for gravely disabled. Pt has decompensated experiencing command auditory hallucinations, paranoia, wandering. He is unable to develop viable plan to meet his basic needs. Pt has history of schizophrenia, bipolar, pancreatitis. Interventions: 1:1 assessment, medication administration/education/monitoring, reassure patient of safety, and Q15 minute safety checks. Response: Patient seen walking in the hallway at the start of the shift. I introduced myself as his nurse and he was smiling and stated he was having a good day. During 1:1 assessment he continues to endorse auditory hallucinations that threatening him and continues to endorse that they are harming him at night time. He denies any thoughts of suicide. No anxiety noted this shift. He did require PRN Clozaril 50 mg to help with sleep, which eventually worked, he continues to be sleeping at this time. Plan: Pt requires stabilization with medication adjustment, management and monitoring in a safe and therapeutic environment until stable.
[2022-07-26] MEDS: benztropine 1mg tablet PO SCH ×2 (07:40→19:30)
[2022-07-26] MEDS: nicotine 21mg patch - 24 hr TD SCH (07:41)
[2022-07-26] MEDS: pantoprazole 40mg Tablet.DR PO SCH (07:41)
[2022-07-26] MEDS: sennosides 8.6mg tablet PO SCH ×2 (07:41→19:32)
[2022-07-26] MEDS: LORazepam 1 MG tablet PO SCH ×3 (07:41→21:00)
[2022-07-26] MEDS: loratadine 10mg tablet PO SCH (07:41)
[2022-07-26] MEDS: CLOZAPINE 25 MG oral disintegrating tablet PO SCH ×2 (07:41→12:38)
[2022-07-26 08:00] VITALS: BP 152/90
[2022-07-26] MEDS ORDERED: quetiapine 100mg tablet PO PRN (13:00)
[2022-07-26] MEDS: QUEtiapine 25mg tablet PO SCH ×2 (14:00→19:32)
--- NOTE | 2022-07-26 16:57 | NUR ---
Nursing Progress Note: Problem: Pt admitted to [facility] on a 5150 for gravely disabled. Pt has decompensated experiencing command auditory hallucinations, paranoia, wandering. He is unable to develop viable plan to meet his basic needs. Pt has history of schizophrenia, bipolar, pancreatitis. Interventions: 1:1 assessment, establishment of rapport, therapeutic conversation, active listening, medication administration/education/monitoring, ensured contract for safety, provided simple instructions, behavior monitoring and intervention as needed, provided distraction, redirection, positive reinforcement, and Q15 minute safety checks. Response: Patient received resting quietly in bed. Cooperative with assessment and medications. Complains of fatigue and states, I didnt sleep AT ALL last night. I want to go back to what I was taking before. Provider is made aware and he gives new med orders. Patient isolates to his room most of the day and appears fatigued and somewhat guarded. Noted napping off and on. He is polite and cooperative. Plan: Pt requires stabilization with medication adjustment, management and monitoring in a safe and therapeutic environment until stable.
[2022-07-26 19:00] VITALS: BP 124/84
[2022-07-26] MEDS ORDERED: CLOZAPINE 100 MG TAB.RAPDIS PO SCH (21:00)
[2022-07-26] MEDS ORDERED: traZODone 50mg tablet PO SCH (21:00)
[2022-07-26] MEDS ORDERED: quetiapine 100mg tablet PO SCH (21:00)
[2022-07-26] MEDS ORDERED: CLOZAPINE 25 MG oral disintegrating tablet PO SCH (21:00)
--- NOTE | 2022-07-27 05:47 | NUR ---
Nursing Progress Note: Problem: Pt admitted to [facility] on a 5150 for gravely disabled. Pt has decompensated experiencing command auditory hallucinations, paranoia, wandering. He is unable to develop viable plan to meet his basic needs. Pt has history of schizophrenia, bipolar, pancreatitis. Interventions: 1:1 assessment, medication administration/education/monitoring, reassure patient of safety, and Q15 minute safety checks. Response: Patient seen walking in the hallway at the start of the shift. Pt was asked by staff to change rooms to make room for a female admit, and shortly after patient began to escalate. He reported that he was having increase in voices and wanted his meds. While I was getting his meds prepared he continued to escalate and started demanding an IM. I spent time with him and administered his evening meds, and he was able to admit that he was unhappy about the room change, the new room was too small. Tried to ask new roommate to switch beds, which roommate did not want to do, which also made him upset. Pt was able to calm down and went to sleep after medication. Plan: Pt requires stabilization with medication adjustment, management and monitoring in a safe and therapeutic environment until stable.
[2022-07-27 07:11] VITALS: BP 150/94
[2022-07-27] MEDS: benztropine 1mg tablet PO SCH ×2 (08:23→20:04)
[2022-07-27] MEDS: loratadine 10mg tablet PO SCH (08:23)
[2022-07-27] MEDS: nicotine 21mg patch - 24 hr TD SCH (08:23)
[2022-07-27] MEDS: LORazepam 1 MG tablet PO SCH ×3 (08:23→20:04)
[2022-07-27] MEDS: pantoprazole 40mg Tablet.DR PO SCH (08:24)
[2022-07-27] MEDS: sennosides 8.6mg tablet PO SCH ×2 (08:24→20:05)
[2022-07-27] MEDS: QUEtiapine 25mg tablet PO SCH ×3 (08:24→20:05)
[2022-07-27] MEDS: CLOZAPINE 25 MG oral disintegrating tablet PO SCH (08:24)
[2022-07-27] MEDS: acetaminophen 325mg tablet PO PRN (09:17)
[2022-07-27] MEDS: quetiapine 100mg tablet PO PRN ×2 (11:24→22:23)
--- NOTE | 2022-07-27 13:55 | NUR ---
Nursing Progress Note: Problem: Pt admitted to [facility] on a 5150 for gravely disabled. Pt has decompensated experiencing command auditory hallucinations, paranoia, wandering. He is unable to develop viable plan to meet his basic needs. Pt has history of schizophrenia, bipolar, pancreatitis. Interventions: 1:1 assessment, establishment of rapport, therapeutic conversation, active listening, medication administration/education/monitoring, ensured contract for safety, provided simple instructions, behavior monitoring and intervention as needed, provided distraction, redirection, positive reinforcement, and Q15 minute safety checks. Response: Patient received resting quietly in bed. Cooperative with assessment and medications. Patient states he slept well last night. Continues to endorse AH/ VH. States they are always there and he doesnt always hear what theyre saying. Speech is generally linear but disorganized at times. Eats meals in the community room and interacts appropriately with staff and peers. Isolated to his room most of the shift and is somewhat guarded. Plan: Pt requires stabilization with medication adjustment, management and monitoring in a safe and therapeutic environment until stable.
[2022-07-27] MEDS ORDERED: QUEtiapine 25mg tablet PO SCH (14:00)
[2022-07-27] MEDS: QUEtiapine 25mg tablet PO PRN (15:59)
[2022-07-27 19:16] VITALS: BP 149/81
[2022-07-27] MEDS: traZODone 150mg tablet PO SCH (20:04)
[2022-07-27] MEDS: quetiapine 100mg tablet PO SCH (20:05)
--- NOTE | 2022-07-27 21:55 | NUR ---
Pt was at the nurses station standing there while I was interacting with another patient, I asked him if he needed anything and he stated something for sleep. I looked at his meds and his nurse had administered a PRN of Seroquel 100 mg on top of his HS meds and it had only been 30 minutes. I told him that we need to wait to let the medicine work and tried to discuss ways to help relax, he talked over me and started yelling "I have been dealing with this for 6 years!!!" I reminded him that he slept well last night and that he just need to try to let the medicine he took work. He was unhappy with this and became agitated, slammed his door, was yelling in the hallway. Similar behavior that he displayed yesterday when he was not happy about having to change his room. Pt again came up to the nurses station stating that I was punishing him by not giving him meds. I explained once again that he had already received a medication and needed to let time pass to see if it will work.
[2022-07-28] MEDS: QUEtiapine 25mg tablet PO PRN (00:06)
--- NOTE | 2022-07-28 05:07 | NUR ---
Nursing Progress Note: Problem: Pt admitted to [facility] on a 5150 for gravely disabled. Pt has decompensated experiencing command auditory hallucinations, paranoia, wandering. He is unable to develop viable plan to meet his basic needs. Pt has history of schizophrenia, bipolar, pancreatitis. Interventions: 1:1 assessment, medication administration/education/monitoring, reassure patient of safety, and Q15 minute safety checks. Response: Patient labile and impatient; compliant with medication but made requests for medication every 15-20min after med pass. After patient was provided PRN, public relations writer attempted alternatives like warm blankets and headphones but patient was not accepting. Immediately after talking with public relations writer, patient complained to CRN that public relations writer was not helping him and he became agitated; refer to previous note. Patient received a total of 600mg Quetiapine (350mg scheduled and 250mg PRN). Patient reported A/VH; denies SI and HI. Patient was provided HS snack in the community room; he paced the unit and appeared to fight falling asleep. Plan: Pt requires stabilization with medication adjustment, management and monitoring in a safe and therapeutic environment until stable.
[2022-07-28] MEDS: pantoprazole 40mg Tablet.DR PO SCH (08:14)
[2022-07-28] MEDS: sennosides 8.6mg tablet PO SCH ×2 (08:14→20:09)
[2022-07-28] MEDS: QUEtiapine 25mg tablet PO SCH ×3 (08:14→20:09)
[2022-07-28] MEDS: LORazepam 1 MG tablet PO SCH ×3 (08:14→20:10)
[2022-07-28] MEDS: loratadine 10mg tablet PO SCH (08:14)
[2022-07-28] MEDS: benztropine 1mg tablet PO SCH ×2 (08:14→20:10)
[2022-07-28 08:29] VITALS: BP 126/76
[2022-07-28] MEDS: nicotine 21mg patch - 24 hr TD SCH (09:29)
[2022-07-28] MEDS ORDERED: PALIPERIDONE 3 MG TAB.ER.24 PO ONE (12:00)
[2022-07-28] MEDS ORDERED: paliperidone palmitate inj 234 MG/1.5 ML SYRINGE IM ONE (12:00)
--- NOTE | 2022-07-28 12:07 | NUR ---
RECEIVED PHONE CALL FROM BENI AT [facility] (DR. ELDER). PT'S LAST INVEGA INJECTION WAS 06/29.
--- NOTE | 2022-07-28 14:39 | NUR ---
Reassessment: Pt continues eating well, documented with mostly 75-100% PO intake of meals meeting estimated nutrient needs. [facility] 07/27. No nutrition intervention implemented at this time. Will continue to follow. Recommendations: 1. Continue regular diet 2. Routine bowel care 3. Weekly scaled wts Addendum: 07/28/22 at [address] Amended: Links added.
[2022-07-28] MEDS ORDERED: diphenhydrAMINE 25mg capsule PO PRN (15:35)
--- NOTE | 2022-07-28 17:18 | NUR ---
NURSING PROGRESS NOTE Problem: Pt admitted to [facility] on a 5150 for gravely disabled. Pt has decompensated experiencing command auditory hallucinations, paranoia, wandering. He is unable to develop viable plan to meet his basic needs. Pt has history of schizophrenia, bipolar, pancreatitis. Interventions: 1:1 assessment, therapeutic conversation, active listening, administered medication as ordered with no adverse side effects, provided simple instructions, behavior monitoring and intervention as needed, provided distraction, redirection, positive reinforcement, and Q15 minute safety checks. Response: Received patient sleeping at shift change. Received in report that pt was agitated and rude to the staff r/t medication he hadnt allowed time to work. Pt woke and unable to fall back to sleep. Pt apologized to contract writer, however contract writer explained he needs to apologize to night staff. Pt states It was a bad night, We (staff) werent seeing eye to eye. Pt reports the pt in the next room had been causing a loud disturbance, which is what woke him up. This created increased anxiety for him all I wanted to do was go back to sleep. Pt was compliant with all medication and care. Pt slept until about 1000, then up for visitation with daughter. Pt was visible on unit, gets along well with new roommate. Pts Clozapine wad discontinued and was restarted on INVEGA ANNA. LAST ONE ADMINISTERED WAS 06/29/22. Pt received Invega 234mg in right deltoid. Plan: Patient is stable with medication adjustments. Pt should be discharged sometime this week.
[2022-07-28 19:24] VITALS: BP 148/95
[2022-07-28] MEDS: quetiapine 100mg tablet PO SCH (20:09)
[2022-07-28] MEDS: traZODone 150mg tablet PO SCH (20:10)
[2022-07-29] MEDS: QUEtiapine 25mg tablet PO SCH (02:32)
--- NOTE | 2022-07-29 04:30 | NUR ---
Nursing Progress Note: Problem: Pt admitted to [facility] on a 5150 for gravely disabled. Pt has decompensated experiencing command auditory hallucinations, paranoia, wandering. He is unable to develop viable plan to meet his basic needs. Pt has history of schizophrenia, bipolar, pancreatitis. Interventions: 1:1 assessment, medication administration/education/monitoring, reassure patient of safety, and Q15 minute safety checks. Response: Patient is pleasant and cooperative with care; compliant with medication. PRN Benadryl and Quetiapine provided; Nicotine patch removed. Patient denied SI, HI, A/VH; no apparent delusions expressed. Patient socialized with peers in recreation room and participated in HS snack prior to bed; observed sleeping and does not appear to be having difficulty. Plan: Pt requires stabilization with medication adjustment, management and monitoring in a safe and therapeutic environment until stable.
[2022-07-29] MEDS: LORazepam 1 MG tablet PO SCH (07:52)
[2022-07-29] MEDS: pantoprazole 40mg Tablet.DR PO SCH (07:52)
[2022-07-29] MEDS: benztropine 1mg tablet PO SCH ×2 (07:53→20:32)
[2022-07-29] MEDS: sennosides 8.6mg tablet PO SCH ×2 (07:53→20:33)
[2022-07-29] MEDS: loratadine 10mg tablet PO SCH (07:53)
[2022-07-29] MEDS: nicotine 21mg patch - 24 hr TD SCH (07:54)
[2022-07-29] MEDS: PALIPERIDONE 3 MG TAB.ER.24 PO SCH (07:54)
[2022-07-29 08:00] VITALS: BP 132/75
[2022-07-29] MEDS ORDERED: QUEtiapine 25mg tablet PO SCH (08:00)
[2022-07-29] MEDS: acetaminophen 325mg tablet PO PRN ×3 (11:48→21:25)
[2022-07-29] MEDS: LORazepam 0.5 MG tablet PO SCH (13:03)
[2022-07-29] MEDS: ibuprofen tablet 400 MG TABLET PO PRN (14:18)
--- NOTE | 2022-07-29 17:25 | NUR ---
Nursing Progress Note: Problem: Patient admitted to [facility] on a 5150 for gravely disabled. Patient has decompensated experiencing command auditory hallucinations, paranoia, wandering. He is unable to develop viable plan to meet his basic needs. Pt has history of schizophrenia, bipolar, pancreatitis. Interventions: Provide medication administration & medication management; Maintained a safe & supportive environment; Clear & simple instructions; Direction & encouragement regarding performance of ADLs; monitored behaviors & maintained clear boundaries; Patient physical assessment & 1:1 patient interview; Therapeutic conversation & active listening; Patient education & monitoring. Response: Received patient at 0720 and administered his 0800 po medications at this time. Patient calm and cooperative during Patient Interview & Assessment. Patient reports I slept terrible all night. Patient requested a list of his medications and stated I cant go home until I am sleeping at night. Noted on the EMAR Review was that his scheduled Seroquel 50 mg po at hs was not administered until 0232. Patient spoke with Dr. Ramirez regarding his reported lack of sleep and reported The will be changing my medications. Patient received a written list of his medications and the times of administration which he has at his bedside. Patient denies SI/AV/VH. Patient reports he will be ready to go home in a few days. Patient participated in snacks & meals, as well as ambulated in the hallway. Patient received Tylenol x1 for c/o DUMONT & the second time when he c/o a headache he received Motrin. Plan: Pt requires stabilization with medication adjustment, management and monitoring in a safe and therapeutic environment until stable.
[2022-07-29] MEDS: NICOTINE POLACRILEX 2 MG LOZENGE BC PRN (19:01)
[2022-07-29 20:00] VITALS: BP 125/71
[2022-07-29] MEDS: quetiapine 100mg tablet PO SCH (20:34)
[2022-07-29] MEDS: traZODone 150mg tablet PO SCH (20:35)
[2022-07-29] MEDS ORDERED: LORazepam 0.5 MG tablet PO SCH (21:00)
--- NOTE | 2022-07-30 02:14 | NUR ---
Nursing Progress Note: Problem: Pt admitted to [facility] [address] on a 5150 for gravely disabled. Pt has decompensated experiencing command auditory hallucinations, paranoia, wandering. He is unable to develop viable plan to meet his basic needs. Pt has history of schizophrenia, bipolar, pancreatitis. Interventions: 1:1 assessment, medication administration/education/monitoring, reassure patient of safety, and Q15 minute safety checks. Response: Patient is pleasant and cooperative with care; compliant with medication. PRN nicotine lozenge 1901 and Tylenol 2125 given; Nicotine patch removed. Patient denied SI, HI, A/VH; no apparent delusions expressed. Patient socialized with peers in recreation room and participated in HS snack prior to bed; observed sleeping and does not appear to be having difficulty. Plan: Pt requires stabilization with medication adjustment, management and monitoring in a safe and therapeutic environment until stable.
[2022-07-30] MEDS: acetaminophen 325mg tablet PO PRN ×2 (05:39→13:40)
[2022-07-30] MEDS: ibuprofen tablet 400 MG TABLET PO PRN (06:56)
[2022-07-30 08:00] VITALS: BP 121/68
[2022-07-30] MEDS: pantoprazole 40mg Tablet.DR PO SCH (08:23)
[2022-07-30] MEDS: PALIPERIDONE 3 MG TAB.ER.24 PO SCH (08:23)
[2022-07-30] MEDS: LORazepam 0.5 MG tablet PO SCH ×2 (08:23→13:07)
[2022-07-30] MEDS: loratadine 10mg tablet PO SCH (08:23)
[2022-07-30] MEDS: benztropine 1mg tablet PO SCH (08:23)
[2022-07-30] MEDS: sennosides 8.6mg tablet PO SCH (08:23)
[2022-07-30] MEDS: nicotine 21mg patch - 24 hr TD SCH (08:25)
[2022-07-30] MEDS ORDERED: FLUT12AE4 IH (12:50)
[2022-07-30] MEDS ORDERED: SENN-173 PO (12:50)
[2022-07-30] MEDS ORDERED: CALC300T4 PO (12:50)
[2022-07-30] MEDS ORDERED: PANT40TA54 PO (12:50)
[2022-07-30] MEDS ORDERED: ALBU6.7H14 INH (12:50)
[2022-07-30] MEDS ORDERED: BENZ1TAB7 PO (12:50)
[2022-07-30] MEDS ORDERED: ATI1T PO (12:50)
[2022-07-30] MEDS ORDERED: DIPH-1055 PO (12:50)
[2022-07-30] MEDS ORDERED: TRAZ150T78 PO (12:50)
[2022-07-30] MEDS ORDERED: NICO-907 BC (12:50)
--- NOTE | 2022-07-30 13:04 | NUR ---
Called lorazepam prescription in to [facility] per Dr. Ramirez's request
--- NOTE | 2022-07-30 14:07 | NUR ---
DISCHARGE NOTE: Pt. discharged to home, pt. picked up by his daughter. Pt. discharged with all valuables and belongings. Pt. explained discharged paperwork including gun restriction, follow up appointments and discharge medications, emergency phone numbers (including 911) pt. verbalized understanding and signed all discharge paperwork. Pt. denies SI/HI, A/V hallucinations. Pt. is A&Ox4 and is in no apparent distress.
== END 2022-07-30 14:07 | disposition home or self-care (01) | DRG 885 ==
LOC: ER 08:55 → ED HOLD 07-18 10:15 → ADULT MH 07-18 11:36
PROVIDERS: ADMIT Psychiatry & Neurology Psychiatry; ATTEND Psychiatry & Neurology Psychiatry
DX: F20.9 Schizophrenia, unspecified (principal); R45.851 Suicidal ideations; Z20.822 Contact with and (suspected) exposure to COVID-19; F15.10 Other stimulant abuse, uncomplicated; F17.210 Nicotine dependence, cigarettes, uncomplicated; Z60.2 Problems related to living alone; F31.9 Bipolar disorder, unspecified; J45.909 Unspecified asthma, uncomplicated; K21.9 Gastro-esophageal reflux disease without esophagitis; Z88.0 Allergy status to penicillin
CPT/HCPCS: 36415; 80053; 80061; 80305; 80320; 81003; 83036; 84443; 85025; 87081; 87811; 94640; 94760; 99285; J1200; J1630; J2060; J2426; Q0163

== ENCOUNTER 2024-06-26 15:25 | Emergency (ER) | payer MEDICARE, MEDICAID ==
[~2024-06-26] VITALS: Ht 172.7 cm; Wt 69.1 kg
[~2024-06-26 15:25] MED LIST changes: +ALBU6.7H14 INH; +ATI1T PO; -BENZ1TAB7 PO; +BENZ1TAB78 PO; -BRIM5DRO RIGHTEYE; +CALC300T4 PO; +DIPH-1212 PO; +FLUT12AE4 IH; -HYDR-3686 PO; -HYDR-4383 PO; +NICO-907 BC; -OMEP20TA43 PO; +PALI234D IM; +PANT40TA54 PO; +QUET25TA36 PO; +SENN-362 PO; -TADA5TAB2 PO
[2024-06-26 16:51] LABS: BASOPHILS # (AUTO) 0.1 X10'3 (0-0.2); BASOPHILS % (AUTO) 0.7 % (0-1); EOSINOPHILS # (AUTO) 0.1 X10'3 (0-0.9); EOSINOPHILS % (AUTO) 1.7 % (0-6); HEMATOCRIT 43.4 % (42.0-52.0); HEMOGLOBIN 14.6 g/dl (14.0-17.9); LYMPHOCYTES # (AUTO) 2.5 X10'3 (1.1-4.8); LYMPHOCYTES % (AUTO) 31.3 % (21-51); MEAN CORPUSCULAR HEMOGLOBIN 28.9 PG (27.0-31.0); MEAN CORPUSCULAR HGB CONC 33.6 g/dL (33.0-36.5); MEAN PLATELET VOLUME 7.3 FL (7.4-10.4); MONOCYTES # (AUTO) 0.8 X10'3 (0-0.9); MONOCYTES % (AUTO) 9.7 % (2-12); NEUTROPHILS # (AUTO) 4.6 X10'3 (1.8-7.7); NEUTROPHILS % (AUTO) 56.6 % (42-75); PLATELET COUNT 425 X10'3 (140-440); RED BLOOD COUNT 5.05 X10'6 (4.70-6.10); WHITE BLOOD COUNT 8.1 X10'3 (4.5-11.0)
[2024-06-26 17:06] LABS: ALBUMIN 3.4 G/DL (3.4-5.0); ANION GAP 4 (8-16); BLOOD UREA NITROGEN 14 MG/DL (7-18); BUN/CREATININE RATIO 11.1 (10.0-20.0); CALCIUM 9.3 MG/DL (8.5-10.1); CHLORIDE 108 MMOL/L (99-107); CREATININE 1.26 MG/DL (0.60-1.10); ETHANOL < 10 MG/DL (<10); GLUCOSE 79 MG/DL (70-104); SODIUM 142 MMOL/L (135-145); TOTAL CARBON DIOXIDE 29.6 MMOL/L (24-32); eCRCL 66 ML/MIN; eGFR 60 ML/MIN
[2024-06-26] MEDS: ziprasidone IM 20mg inj **IM only IM ONE (17:10)
[2024-06-26 17:12] LABS: ACETAMINOPHEN < 2.0 UG/ML (10-30)
[2024-06-26 19:54] LABS: BILIRUBIN,URINE NEGATIVE (Neg); CLARITY,URINE SLIGHTLY CLOUDY (Clear); COLOR,URINE YELLOW (Yellow); GLUCOSE, URINE NEGATIVE (Neg); KETONES,URINE NEGATIVE (Neg); LEUKOCYTE ESTERASE ,URINE NEGATIVE (Neg); NITRITES, URINE NEGATIVE (Neg); OCCULT BLOOD,URINE NEGATIVE (Neg); PROTEIN,URINE TRACE mg/dl (Neg); UROBILINOGEN,URINE 0.2 E.U/dL (0.2-1.0)
[2024-06-26 20:00] LABS: UA COLLECTION TYPE VOIDED
[2024-06-26] MEDS: quetiapine 100mg tablet PO SCH (20:00)
[2024-06-26 20:01] LABS: SQUAMOUS EPITHELIAL CELL,UR FEW /LPF (FEW)
[2024-06-26 20:02] LABS: BACTERIA,URINE 1+ /HPF (Neg); CAL OXALATE CRYSTALS 2+ /HPF (NEGATIVE); MUCUS STRANDS MODERATE /LPF (Neg); RBC,URINE NONE SEEN /HPF (0-2); SPERM FEW /HPF (NEGATIVE); WBC,URINE 0-4 /HPF (0-4)
[2024-06-26 20:10] LABS: URINE AMPHETAMINE SCREEN POSITIVE (Neg); URINE BARBITUATE SCREEN NEGATIVE (Neg); URINE BENZODIAZEPINES SCREEN NEGATIVE (Neg); URINE CANNABINOID SCREEN NEGATIVE (Neg); URINE COCAINE SCREEN NEGATIVE (Neg); URINE METHADONE SCREEN NEGATIVE (Neg); URINE OPIATE SCREEN NEGATIVE (Neg); URINE PHENCYCLIDINE SCREEN NEGATIVE (Neg)
[2024-06-26] MEDS ORDERED: NO HOME MEDS (21:03)
[2024-06-27] MEDS: quetiapine 100mg tablet PO ONE (02:51)
[2024-06-27] MEDS: LORazepam 2 mg/ml vial IM ONE (03:12)
[2024-06-27] MEDS ORDERED: quetiapine 100mg tablet PO SCH (08:00)
[2024-06-27] MEDS: ziprasidone IM 20mg inj **IM only IM ONE (09:59)
[2024-06-27 13:50] VITALS: BP 127/83; PULSE 96; RESP 16; TEMP 98; O2SAT 98
[2024-06-27] MEDS: LORazepam 1 MG tablet PO ONE (13:53)
[2024-06-27] MEDS ORDERED: quetiapine 100mg tablet PO ONE (20:00)
== END 2024-06-27 14:04 | disposition still patient (30) ==
LOC: ER 15:26
DX: R45.851 Suicidal ideations (principal); Z20.822 Contact with and (suspected) exposure to COVID-19; J45.909 Unspecified asthma, uncomplicated; F31.9 Bipolar disorder, unspecified; F20.9 Schizophrenia, unspecified; R07.89 Other chest pain; R45.1 Restlessness and agitation; Z76.0 Encounter for issue of repeat prescription; Z88.0 Allergy status to penicillin
CPT/HCPCS: 36415; 80048; 80305; 80329; 81001; 85025; 87811; 93005; 96372; 99285; G0480; J2060; J3486; 80320